=== PATIENT | female | born 1970 | race Caucasian/White ===

== ENCOUNTER 2018-10-16 19:56 | Emergency (ER) | payer OTHER ==
--- NOTE | 2018-10-16 20:16 | Emergency Department Record ---
History of Present Illness - General Chief Complaint: General Stated Complaint: FELT SOMETING UNUSUAL IN HEAD Time Seen by Provider: 10/16/18 20:11 Source: Patient Mode of Arrival: Ambulatory Limitations: No limitations - History of Present Illness Initial comments: 47 yo female presents to ED for evaluation of a "funny feeling in the head" this afternoon. Patient reports a "warm sensation to the left scalp region", then reports mild pressure to the head which has resolved. Patient denies numbness, tingling, extremity weakness, or history of headaches. Patient denies change in vision, denies taking anything for her symptoms at home. Patient reports that she called her PCP who recommended evaluation in the ED. Patient denies health problems at her baseline. Onset/Timin -: Days(s) Location: Head Radiation: Non-Radiating Quality: Other Consistency: Intermittent Improves with: None Worsens with: None Associated Symptoms: Denies other symptoms - Dubois Coma Scale Eye Response: (4) Open spontaneously Motor Response: (6) Obeys commands Verbal Response: (5) Oriented Rehan Total: 15 - Related Data Home Medications Medication Instructions Recorded Confirmed Last Taken Multivitamin [Multiple Vitamins] 1 each PO DAILY 10/16/18 10/16/18 10/16/18 Allergies Allergy/AdvReac Type Severity Reaction Status Date / Time No Known Drug Allergies Allergy Verified 10/16/18 20:16 Review of Systems Constitutional: Denies: Chills, Fever, Malaise, Night sweats Eyes: Denies: Eye discharge, Eye pain ENT: Denies: Congestion, Ear pain, Epistaxis Respiratory: Denies: Cough, Dyspnea Cardiovascular: Denies: Chest pain, Dyspnea on exertion Endocrine: Denies: Fatigue, Heat or cold intolerance Gastrointestinal: Denies: Abdominal pain, Nausea, Vomiting Genitourinary: Denies: Incontinence, Retention Musculoskeletal: Denies: Arthralgia, Back pain Skin: Denies: Bruising, Change in color Neurological: Reports: Headache. Denies: Abnormal gait, Confusion, Seizure Psychiatric: Denies: Anxiety Hematological/Lymphatic: Denies: Anemia Physical Exam - General General Appearance: Alert, Oriented x3, Cooperative, No acute distress, Other (Smiling, interactive, well appearing on examination.) Limitations: No limitations - Head Head exam: Atraumatic, Normocephalic, Normal inspection Head exam detail: negative: Abrasion, Contusion, Barrow's sign, General tenderness, Hematoma, Laceration - Eye Eye exam: Normal appearance. negative: Conjunctival injection, Periorbital swelling, Periorbital tenderness, Scleral icterus - ENT Ear exam: negative: Auricular hematoma, Auricular trauma Nasal Exam: negative: Active bleeding, Discharge, Dried blood, Foreign body Mouth exam: negative: Drooling, Laceration, Muffled voice, Tongue elevation - Neck Neck exam: Normal inspection. negative: Meningismus, Tenderness - Respiratory Respiratory exam: Normal lung sounds bilaterally. negative: Rales, Respiratory distress, Rhonchi, Stridor - Cardiovascular Cardiovascular Exam: Regular rate, Normal rhythm, Normal heart sounds - GI/Abdominal GI/Abdominal exam: Soft. negative: Rebound, Rigid, Tenderness - Rectal Rectal exam: Deferred - exam: Deferred - Extremities Extremities exam: Normal inspection. negative: Pedal edema, Tenderness - Back Back exam: Denies: CVA tenderness (R), CVA tenderness (L) - Neurological Neurological exam: Alert, Normal gait, Oriented X3 - Psychiatric Psychiatric exam: Normal affect, Normal mood - Skin Skin exam: Normal color. negative: Abrasion Type of lesion: negative: abrasion Course Vital Signs 10/16/18 20:07 Temperature 98.3 F Pulse Rate [ 74 Pulse Ox Probe] Respiratory 20 Rate Blood Pressure 132/83 [Left Arm] Pulse Ox 97 - Reevaluation(s) Reevaluation #1: 10/16/18 20:58 CT Brain: No acute abnormality identified Patient was updated on her results, reports that she is feeling at her baseline No clinical concern for TIA/CVA on examination Patient appear stable for discharge at this time. Disposition Disposition: Discharge Clinical Impression: Atypical cluster headache Disposition: Home, Self-Care Condition: (2) Stable Instructions: Acute Headache (ED) Additional Instructions: Return to ED if your symptoms worsen or if you have any concerns. Follow-up with your family doctor in 3-5 days as directed. Forms: Patient Portal Access Time of Disposition: 20:59 Quality - Quality Measures Quality Measures: N/A - Blood Pressure Screening Does Patient Have Any of the Following: No Blood Pressure Classification: Pre-Hypertensive BP Reading Systolic Measurement: 132 Diastolic Measurement: 83 Screening for High Blood Pressure: < Pre-Hypertensive BP, F/U Documented > [G8950] Pre-Hypertensive Follow-up Interventions: Referral to alternative/primary care provider.
--- NOTE | 2018-10-18 12:24 | CT SCAN REPORT ---
EXAM: CT OF THE HEAD WITHOUT CONTRAST HISTORY: PATIENT DESCRIBES FEELING OF TINGLING AND A POPPING SENSATION UNDER SKIN ON TOP OF HER HEAD STARTING AROUND 2:00 O'CLOCK. TECHNIQUE: Standard CT imaging of the head without contrast was obtained. Comparison: None. FINDINGS: The ventricles, sulci and basal cisterns are normal. No intracranial hemorrhage or extraaxial fluid collection is identified. No significant mass effect or midline shift. The ramirez white matter differentiation is maintained. The paranasal sinuses and mastoid air cells are clear. IMPRESSION: NEGATIVE NONCONTRAST CT OF THE HEAD. JOB NUMBER: [id number] [facility]
== END 2018-10-16 21:13 | disposition home or self-care (01) ==
LOC: ER 19:56
DX: G44.009 Cluster headache syndrome, unspecified, not intractable (principal); R20.2 Paresthesia of skin
CPT/HCPCS: 70450; 99283